=== PATIENT | male | born 1990 | race Caucasian/White ===

== ENCOUNTER 2021-12-24 18:29 | Emergency (ER) | payer MEDICAID, SELFPAY ==
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
[2021-12-24 19:09] VITALS: BP 116/66; PULSE 63; O2SAT 96
--- NOTE | 2021-12-24 20:03 | HO.SUDE ---
Pt declined to participate in a substance use disorder evaluation.
[2021-12-24 21:09] VITALS: BP 111/78; PULSE 84; RESP 16; TEMP 36.1; O2SAT 99
[2021-12-24] MEDS: Naloxone HCl Nasal TAKE HOME 4 MG SPRAY NOSTRILALT (21:26)
--- NOTE | 2021-12-24 21:27 | PC.NURSE ---
report received from LINSEY Alston. pt alert and oriented. resting in bed. breathing equally unlabored. denies any chest pain or sob. this RN notice that pt did not have any vitals since arrival to ED, ed provider made aware. vital signs obtained.
== END 2021-12-24 21:30 | disposition home or self-care (01) ==
PROVIDERS: Emergency Provider Emergency Medicine
DX: T40.1X1A Poisoning by heroin, accidental (unintentional), initial encounter (principal); Y92.9 Unspecified place or not applicable
CPT/HCPCS: 99281; 99283